=== PATIENT | female | born 1970 | race Caucasian/White ===

== ENCOUNTER → 2019-05-26 | Outpatient (CLI) | payer OTHER | END | disposition home or self-care (01) | LOC: RAH 09:28 | PROVIDERS: ATTEND Surgery | DX: E88.81 Metabolic syndrome and other insulin resistance (principal); E11.9 Type 2 diabetes mellitus without complications | CPT/HCPCS: 76705 ==

== ENCOUNTER → 2019-10-19 | Outpatient (CLI) | payer SELFPAY ==
--- NOTE | 2019-10-19 15:20 | NUR ---
BARIATRIC PRE-OP NUTRITION EDUCATION Visit: 2:45-3:15PM RD provided Bariatric Pre-/Post-Op Nutrition education. RD reviewed Bariatric Meal Planning packet with Pt. RD answered all of Pt questions. Pt verbalized understanding. RD provided contact information. Pt current Pre-Op wt: 219 lbs.Procedure date: 10/31/19Clear Liquid Start Date: 10/24/19. Addendum: 10/19/19 at [address] Amended: Links added.
== END | disposition home or self-care (01) ==
LOC: DTH 14:29
PROVIDERS: ATTEND Surgery
DX: E11.9 Type 2 diabetes mellitus without complications (principal)

== ENCOUNTER → 2019-10-20 | Outpatient (CLI) | payer SELFPAY ==
[2019-10-20 09:21] LABS: BASOPHILS % (AUTO) 0.8 % (0.0-5.0); EOSINOPHILS % (AUTO) 2.6 % (0.0-8.0); HEMATOCRIT 45.6 % (36-48); LYMPHOCYTES % (AUTO) 20.9 % (21.0-51.0); MEAN CORPUSCULAR HEMOGLOBIN 30.6 pg (27.0-33.0); MEAN CORPUSCULAR HGB CONC 31.4 g/dL (32.0-36.0); MEAN CORPUSCULAR VOLUME 97.4 fL (79-99); MONOCYTES % (AUTO) 10.6 % (3.0-13.0); NEUTROPHILS % (AUTO) 65.1 % (40.0-77.0); PLATELET COUNT (AUTO) 259 K/uL (130-400); RED BLOOD CELL COUNT(AUTO) 4.68 MIL/uL (4.00-5.50); RED CELL DISTRIBUTION WIDTH 12.2 % (11.0-15.5)
[2019-10-20 09:36] LABS: INR 0.87 (0.85-1.15); PARTIAL THROMBOPLASTIN TIME 26.7 SEC (26.3-35.5); PROTHROMBIN TIME 9.4 SEC (9.6-11.6)
[2019-10-20 09:48] LABS: CREATININE 0.9 mg/dL (0.5-1.5); MAGNESIUM 2.2 mg/dL (1.80-2.40); POTASSIUM 3.9 mmol/L (3.5-5.1)
[2019-10-20 09:52] LABS: APPEARANCE,URINE Cloudy (CLEAR); BILIRUBIN,URINE Negative (NEGATIVE); COLOR,URINE Yellow (YELLOW); GLUCOSE, URINE (UA) Negative (NEGATIVE); KETONES,URINE Negative (NEGATIVE); LEUKOCYTE ESTERASE ,URINE Small (NEGATIVE); NITRATE,URINE Negative (NEGATIVE); OCCULT BLOOD,URINE Negative (NEGATIVE); PH,URINE 6.5 (5.0-8.0); PROTEIN,URINE Negative (NEGATIVE); UROBILINOGEN,URINE 0.2 mg/dL (0.2-1.0)
[2019-10-20 10:06] LABS: BILIRUBIN,TOTAL 0.3 mg/dL (0.2-1.0); THYROID STIMULATING HORMONE 1.21 uIU/mL (0.36-3.74); TOTAL PROTEIN, SERUM 7.9 g/dL (6.0-8.3)
[2019-10-20 10:11] LABS: PHOSPHORUS 3.1 mg/dL (2.5-4.9)
[2019-10-20 10:14] LABS: HEMOGLOBIN A1C 5.6 % (4.0-6.0)
[2019-10-20 10:33] LABS: BACTERIA,URINE Few /HPF (None Seen)
[2019-10-20 10:34] LABS: RBC,URINE 0-1 /HPF (0-1)
== END | disposition home or self-care (01) ==
LOC: LAB 07:54
PROVIDERS: ATTEND Family Medicine
DX: E66.09 Other obesity due to excess calories (principal)
CPT/HCPCS: 36415; 80053; 80061; 81001; 82306; 82525; 82607; 82728; 82746; 83036; 83540; 83550; 83735; 83970; 84100; 84425; 84443; 84446; 84481; 84590; 84597; 84630; 85025; 85610; 85730